=== PATIENT | female | born 1940 | race Caucasian/White ===

== ENCOUNTER 2017-01-29 22:59 | Inpatient (IN) | payer MEDICARE, BC ==
[2017-01-29] MEDS ORDERED: Ondansetron 4 MG Tab.DIS PO ONE (23:26)
[2017-01-29] MEDS ORDERED: Sodium Chloride 0.9% 500 ML IV SCH (23:30)
[2017-01-29] MEDS ORDERED: Ondansetron 4 MG Tab.DIS ONE (23:30)
[2017-01-29] MEDS ORDERED: Prochlorperazine 10 MG Tab PO PRN (23:52)
[2017-01-30] MEDS ORDERED: Promethazine 25 MG/ML SDV ONE (00:05)
[2017-01-30] MEDS ORDERED: Ketorolac 30 MG/ML SDV ONE (00:05)
[2017-01-30] MEDS: Ketorolac 30 MG/ML SDV IVPUSH PRN ×2 (00:17→07:35)
[2017-01-30] MEDS: Promethazine 25 MG in Sodium Chloride 0.9% 50 ML IV PRN ×2 (00:20→05:50)
--- NOTE | 2017-01-30 00:21 | EDM.PDOC ---
ED HPI GENERAL MEDICAL PROBLEM - General Chief Complaint: General Stated Complaint: passing out / weakness Time Seen by Provider: 01/29/17 23:34 Source of Information: Reports: Patient History Limitations: Reports: No limitations - History of Present Illness INITIAL COMMENTS - FREE TEXT/NARRATIVE: This is a 76yo F here for recent episode of syncope. Patient had been throwing up since 8pm today and felt very ill when she called her neighbor. When her neighbor arrived she had an episode of syncope. EMS was called and patient was brought in. Patient states she feels chills but denies fever. Patient states she hurts all over but that this is nothing new. Patient continues to vomit during her evaluation. Onset: gradual Duration: Hour(s):, Intermittent Location: Reports: generalized Severity: moderate Improves with: Reports: None Worsens with: Reports: None Context: Reports: Sick contact (family GI sickness a week ago) Associated Symptoms: Reports: diaphoresis, fever/chills, nausea/vomiting, syncope Generalized Pain Score (Numeric/FACES): 6 - Related Data Allergies Allergy/AdvReac Type Severity Reaction Status Date / Time Penicillins Allergy Cannot Verified 01/29/17 23:14 Remember Tetanus Vaccines and Toxoid Allergy Anaphylactic Verified 01/29/17 23:14 Shock narcotic Allergy Cannot Uncoded 08/12/13 13:30 Remember Home Meds: Home Meds Cholecalciferol (Vitamin D3) [Vitamin D] 400 unit PO DAILY 08/12/13 [History] Naproxen Sodium [Aleve] 220 mg PO BID PRN 08/12/13 [History] [place]-3/DHA/Epa/Fish Oil [Fish Oil 1,000 mg Softgel] 1 each PO DAILY 08/12/13 [ History] Valsartan [Diovan] 40 mg PO BID 08/12/13 [History] metFORMIN [metFORMIN XR] 500 mg PO TID 08/12/13 [History] atorvaSTATin [Lipitor] 20 mg PO BEDTIME 01/29/17 [History] Social & Family History - Tobacco Use Smoking Status *Q: Current Every Day Smoker Years of Tobacco use: 60 Packs/Tins Daily: 1 Used Tobacco, but Quit: No Second Hand Smoke Exposure: Yes - Caffeine Use Caffeine Use: Reports: Coffee - Alcohol Use Days Per Week of Alcohol Use: 1 Number of Drinks Per Day: 2 Total Drinks Per Week: 2 - Recreational Drug Use Recreational Drug Use: No ED ROS GENERAL - Review of Systems Review Of Systems: See Below Constitutional: Reports: chills, diaphoresis HEENT: Reports: No symptoms Respiratory: Reports: no symptoms Cardiovascular: Reports: No symptoms Endocrine: Reports: no symptoms GI/Abdominal: Reports: Nausea, Vomiting Musculoskeletal: Reports: back pain, leg pain, joint pain, muscle pain Skin: Reports: no symptoms Neurological: Reports: no symptoms Psychiatric: Reports: No symptoms Hematologic/Lymphatic: Reports: no symptoms Immunologic: Reports: environmental allergy ED EXAM, GENERAL - Physical Exam Exam: See Below Exam Limited By: No limitations General Appearance: alert, WD/WN, moderate distress Eye Exam: bilateral eye: EOMI, PERRL Ears: normal external exam Ear Exam: bilateral ear: auricle normal, canal normal, TM normal Nose: normal inspection Throat/Mouth: Normal inspection Head: atraumatic, normocephalic Neck: normal inspection, supple, non-tender Respiratory/Chest: no respiratory distress, lungs clear Cardiovascular: normal peripheral pulses, regular rate, rhythm, other (b/l leg edema +2) Peripheral Pulses: 2+: dorsalis pedis (L), dorsalis pedis (R) GI/Abdominal: normal bowel sounds, distended. No: rebound, tender, abnormal bowel sounds: Extremities: normal capillary refill, pedal edema Neurological: alert, oriented Psychiatric: normal affect, normal mood Skin Exam: Warm, Dry, Intact Course - Vital Signs Last Recorded V/S: Last Vital Signs Temp 36.8 C 01/29/17 23:45 Pulse 97 01/29/17 23:45 Resp 24 H 01/29/17 23:45 BP 203/72 H 01/29/17 23:45 Pulse Ox 96 01/29/17 23:45 - Orders/Labs/Meds Orders: Active Orders 24 hr Category Date Time Status Patient Status [ADT] Routine ADT 01/30/17 00:15 Ordered EKG Documentation Completion [RC] ASDIRECTED Care 01/29/17 23:20 Active Oxygen Therapy [RC] PRN Care 01/30/17 00:15 Ordered Vital Signs [RC] Q4H Care 01/30/17 00:15 Ordered UA W/MICROSCOPIC [URIN] Stat Lab 01/29/17 23:23 Uncollected Ketorolac [Toradol] Med 01/29/17 23:58 Active 30 mg IVPUSH Q6H PRN Nicotine [Habitrol] Med 01/30/17 08:00 Active 21 mg TRDERM DAILY Ondansetron [Zofran] Med 01/29/17 23:52 Active 4 mg IVPUSH Q4H PRN Prochlorperazine [Compazine] Med 01/29/17 23:52 Active 10 mg PO Q6H PRN Promethazine [Phenergan] 25 mg Med 01/30/17 00:01 Active Sodium Chloride 0.9% [Normal Saline] 50 ml IV Q6H Sodium Chloride 0.9% [Normal Saline] 500 ml Med 01/29/17 23:30 Active IV ASDIRECTED Medication Orders Sodium Chloride (Normal Saline) 500 mls @ 250 mls/hr IV ASDIRECTED [facility] Promethazine HCl 25 mg/ Sodium (Chloride) 51 mls @ 200 mls/hr IV Q6H PRN PRN Reason: Nausea/Vomiting Ketorolac Tromethamine (Toradol) 30 mg IVPUSH Q6H PRN PRN Reason: Pain Stop: 02/03/17 23:59 Nicotine (Habitrol) 21 mg TRDERM DAILY [facility] Ondansetron HCl (Zofran) 4 mg IVPUSH Q4H PRN PRN Reason: Nausea/Vomiting Prochlorperazine Maleate (Compazine) 10 mg PO Q6H PRN PRN Reason: Nausea/Vomiting Labs: Laboratory Tests 01/29/17 01/29/17 01/29/17 Range/Units 23:40 23:40 23:40 WBC 14.0 H D (4.0-11.0) K/uL RBC 4.93 (3.80-5.80) M/uL Hgb 14.7 (11.5-16.5) g/dL Hct 44.4 (37.0-47.0) % MCV 90 (76-96) fL MCH 29.8 (27.0-32.0) pg MCHC 33.1 (31.0-35.0) g/dL RDW 13.7 (11.0-16.0) % Plt Count 231 (150-500) K/uL MPV 9.8 (6.0-10.0) fL Neut % (Auto) 92.2 H (45.0-70.0) % Lymph % (Auto) 3.1 L (20.0-40.0) % [place] % (Auto) 3.5 (3.0-10.0) % Eos % (Auto) 1.1 (1.0-5.0) % Baso % (Auto) 0.1 (0.0-0.5) % Neut # 12.89 H (2.00-7.50) K/uL Lymph # 0.43 L (1.50-4.00) K/uL [place] # 0.49 (0.20-0.80) K/uL Eos # 0.16 (0.04-0.40) K/uL Baso # 0.02 (0.02-0.10) K/uL Sodium 139 (136-145) mmol/L Potassium 4.5 (3.5-5.1) mmol/L Chloride 102 (98-107) mmol/L Carbon Dioxide 26.1 (21.0-32.0) mmol/L Anion Gap 15.4 H (5.0-15.0) mmol/L BUN 29 H D (8-26) mg/dL Creatinine 1.05 H (0.55-1.02) mg/dL Est Cr Clr Drug Dosing 33.25 mL/min Estimated GFR (MDRD) 51 L (>60) MLS/MIN BUN/Creatinine Ratio 27.6 H (6-25) Glucose 194 H D (74-100) mg/dL Hemoglobin A1c (4.5-6.2) % Calcium 8.8 (8.5-10.1) mg/dL Total Bilirubin 0.7 D (0.0-1.0) mg/dL AST 14 L (15-37) U/L ALT 19 (12-78) U/L Alkaline Phosphatase 87 (46-116) U/L Troponin I < 0.017 (0.000-0.060) ng/mL B-Natriuretic Peptide 222 (0-450) pg/mL Total Protein 7.4 (6.4-8.2) g/dL Albumin 3.7 (3.4-5.0) g/dL Globulin 3.7 (2.2-4.2) g/dL Albumin/Globulin Ratio 1.0 (0.8-2.0) TSH, Ultra Sensitive 3.157 (0.358-3.740) uIU/mL 01/29/17 Range/Units 23:40 WBC (4.0-11.0) K/uL RBC (3.80-5.80) M/uL Hgb (11.5-16.5) g/dL Hct (37.0-47.0) % MCV (76-96) fL MCH (27.0-32.0) pg MCHC (31.0-35.0) g/dL RDW (11.0-16.0) % Plt Count (150-500) K/uL MPV (6.0-10.0) fL Neut % (Auto) (45.0-70.0) % Lymph % (Auto) (20.0-40.0) % [place] % (Auto) (3.0-10.0) % Eos % (Auto) (1.0-5.0) % Baso % (Auto) (0.0-0.5) % Neut # (2.00-7.50) K/uL Lymph # (1.50-4.00) K/uL [place] # (0.20-0.80) K/uL Eos # (0.04-0.40) K/uL Baso # (0.02-0.10) K/uL Sodium (136-145) mmol/L Potassium (3.5-5.1) mmol/L Chloride (98-107) mmol/L Carbon Dioxide (21.0-32.0) mmol/L Anion Gap (5.0-15.0) mmol/L BUN (8-26) mg/dL Creatinine (0.55-1.02) mg/dL Est Cr Clr Drug Dosing mL/min Estimated GFR (MDRD) (>60) MLS/MIN BUN/Creatinine Ratio (6-25) Glucose (74-100) mg/dL Hemoglobin A1c 6.5 H (4.5-6.2) % Calcium (8.5-10.1) mg/dL Total Bilirubin (0.0-1.0) mg/dL AST (15-37) U/L ALT (12-78) U/L Alkaline Phosphatase (46-116) U/L Troponin I (0.000-0.060) ng/mL B-Natriuretic Peptide (0-450) pg/mL Total Protein (6.4-8.2) g/dL Albumin (3.4-5.0) g/dL Globulin (2.2-4.2) g/dL Albumin/Globulin Ratio (0.8-2.0) TSH, Ultra Sensitive (0.358-3.740) uIU/mL Meds: Medications Generic Name Dose Route Start Last Admin Trade Name Freq PRN Reason Stop Dose Admin Sodium Chloride 500 mls @ 250 mls/hr 01/29/17 23:30 Normal Saline IV ASDIRECTED [facility] Promethazine HCl 25 mg/ Sodium 51 mls @ 200 mls/hr 01/30/17 00:01 Chloride IV Q6H PRN Nausea/Vomiting Ketorolac Tromethamine 30 mg 01/29/17 23:58 Toradol IVPUSH 02/03/17 23:59 Q6H PRN Pain Nicotine 21 mg 01/30/17 08:00 Habitrol TRDERM DAILY [facility] Ondansetron HCl 4 mg 01/29/17 23:52 Zofran IVPUSH Q4H PRN Nausea/Vomiting Prochlorperazine Maleate 10 mg 01/29/17 23:52 Compazine PO Q6H PRN Nausea/Vomiting Discontinued Medications Generic Name Dose Route Start Last Admin Trade Name Freq PRN Reason Stop Dose Admin Ketorolac Tromethamine Confirm 01/30/17 00:05 Toradol Administered 01/30/17 00:06 Dose 30 mg .ROUTE .STK-MED ONE Ondansetron HCl 8 mg 01/29/17 23:26 Zofran Odt PO 01/29/17 23:27 ONETIME ONE Ondansetron HCl Confirm 01/29/17 23:30 01/30/17 00:03 Zofran Odt Administered 01/29/17 23:31 Not Given Dose 8 mg .ROUTE .STK-MED ONE Promethazine HCl Confirm 01/30/17 00:05 Phenergan Administered 01/30/17 00:06 Dose 25 mg .ROUTE .STK-MED ONE - Re-Assessments/Exams Free Text/Narrative Re-Assessment/Exam: Given 8mg zofran orally but continued to vomit. IV to be placed for nausea medications. Departure - Departure Time of Disposition: 00:24 Disposition: Admitted As Inpatient 67 Condition: good Clinical Impression: Dehydration symptoms, Renal dysfunction Syncope Qualifiers: Syncope type: unspecified Qualified Code(s): R55 - Syncope and collapse Leukocytosis, unspecified Qualifiers: Leukocytosis type: unspecified Qualified Code(s): D72.829 - Elevated white blood cell count, unspecified Forms: ED Department Discharge - Problem List Review Problem List Initiated/Reviewed/Updated: Yes - My Orders Last 24 Hours: My Active Orders 01/29/17 23:20 EKG Documentation Completion [RC] ASDIRECTED 01/29/17 23:23 UA W/MICROSCOPIC [URIN] Stat 01/29/17 23:30 Sodium Chloride 0.9% [Normal Saline] 500 ml IV ASDIRECTED 01/29/17 23:52 Ondansetron [Zofran] 4 mg IVPUSH Q4H PRN Prochlorperazine [Compazine] 10 mg PO Q6H PRN 01/29/17 23:58 Ketorolac [Toradol] 30 mg IVPUSH Q6H PRN 01/30/17 00:01 Promethazine [Phenergan] 25 mg Sodium Chloride 0.9% [Normal Saline] 50 ml IV Q6H 01/30/17 00:15 Patient Status [ADT] Routine Oxygen Therapy [RC] PRN Vital Signs [RC] Q4H 01/30/17 08:00 Nicotine [Habitrol] 21 mg TRDERM DAILY - Assessment/Plan Last 24 Hours: My Active Orders 01/29/17 23:20 EKG Documentation Completion [RC] ASDIRECTED 01/29/17 23:23 UA W/MICROSCOPIC [URIN] Stat 01/29/17 23:30 Sodium Chloride 0.9% [Normal Saline] 500 ml IV ASDIRECTED 01/29/17 23:52 Ondansetron [Zofran] 4 mg IVPUSH Q4H PRN Prochlorperazine [Compazine] 10 mg PO Q6H PRN 01/29/17 23:58 Ketorolac [Toradol] 30 mg IVPUSH Q6H PRN 01/30/17 00:01 Promethazine [Phenergan] 25 mg Sodium Chloride 0.9% [Normal Saline] 50 ml IV Q6H 01/30/17 00:15 Patient Status [ADT] Routine Oxygen Therapy [RC] PRN Vital Signs [RC] Q4H 01/30/17 08:00 Nicotine [Habitrol] 21 mg TRDERM DAILY Plan: Patient to be admitted as follows 1. Syncope - likely vasovagal due to vomiting episodes. EKG done but does show minimal changes including 'cannot rule out Anterior infarct age undetermined'. Her last EKG was 2007 in records. We will repeat Troponin in AM. 2. Leukocytosis - IVF hydration and repeat CBC in am. Likely stress induced. 3. Dehydration/renal dysfunction - Continue IVF with maintenance fluids. F/u labs in AM.
[2017-01-30] MEDS: Sodium Chloride 0.9% 1,000 ML IV SCH ×2 (02:35→05:51)
[2017-01-30] MEDS: Ondansetron 4 MG/2 ML SDV IVPUSH PRN ×2 (04:10→05:12)
[2017-01-30] MEDS ORDERED: Morphine 2 MG/ML Syringe IVPUSH PRN (08:10)
--- NOTE | 2017-01-30 10:37 | CR ---
DATE OF SERVICE: 01/30/17 CLINICAL DATA: pain SUPINE AND UPRIGHT ABDOMEN: Comparison is made to a prior exam dated 02/24/13. There is a moderate amount of gas and stool present throughout the colon. There are multiple gas-filled loops of small bowel within the abdomen and pelvis. A couple of these are mildly dilated. There are a few scattered air- fluid levels within the small bowel and colon on the upright film. Additional obstruction or ileus should be considered. No free air. I do not see any other significant findings. [id number] [facility]
[2017-01-30] MEDS: Nicotine 21 MG/24 Hr Patch TRDERM SCH (13:00)
[2017-01-30] MEDS: Insulin Aspart 100 Units/ML 3 ML Pen SUBCUT SCH (13:04)
[2017-01-30] MEDS ORDERED: Sodium Chloride 0.9% 1,000 ML IV SCH (13:45)
[2017-01-30] MEDS ORDERED: Acetaminophen 325 MG Tab ONE (14:09)
--- NOTE | 2017-01-30 17:43 | PN ---
DATE OF VISIT: 01/30/2017 SUBJECTIVE: A 76-year-old female was admitted last evening with nausea, vomiting, abdominal pain. The patient had mild leukocytosis on admission with no fevers, but did have chills. States the symptoms came on abruptly at 8 o'clock last night. She did have a bowel movement prior to this. She has had a laparotomy in the past for internal hernia, but no other abdominal surgeries. She has had grandchildren that she is taking care of who were sick with similar symptoms, but that was 10 days ago. She currently is complaining of some abdominal pain, but her nausea and vomiting are resolved. She has not passed any stool or flatus. OBJECTIVE: GENERAL: A pleasant female, lying in bed, in mild distress. VITAL SIGNS: Blood pressure 145/68, pulse is 108, respirations 18, O2 sats 93. She is afebrile at 99. NECK: No adenopathy in the neck. LUNGS: Clear. CARDIAC: Exam reveals regular rate and rhythm. No gallop. No pedal edema. ABDOMEN: Reveals mildly decreased bowel sounds, mildly distended. She is diffusely tender to palpation, but no rebound or guarding. I cannot palpate any masses. NEUROLOGIC: Nonfocal. LABORATORY DATA: White count rechecked this morning is 11.1, hemoglobin 13.2, platelet count 208. Electrolytes are normal with an anion gap of 15.8, BUN of 35, and creatinine of 1.13. LFTs last night were normal. Troponin is negative. Lactic acid is 1.74 , which is minimally elevated. Urinalysis shows a very high specific gravity greater than 1.03. Urine protein is 100. No white cells or red cells. Abdominal flat and upright, some stool within the colon, minimal small bowel dilatation with a few air-fluid levels. ADDENDUM: Did come back and see her later this afternoon and states she is passing flatus currently. Her abdominal pain is much improved. No further nausea or vomiting. IMPRESSION: 1. Gastroenteritis. 2. Hypertension. 3. Hyperlipidemia. PLAN: With the patient passing flatus currently and her nausea and vomiting resolved and she is taking p.o. liquids, I think this is most likely gastroenteritis. Encouraged p.o. intake and ambulation. Will advance her diet as tolerated. Anticipate that she should be able to go home tomorrow if her symptoms continue to improve. Continue her current antihypertensives. LL/CHAPARRO /[id number] SONIDO
[2017-01-30] MEDS: Ibuprofen 400 MG Tab PO ONE (19:28)
[2017-01-30] MEDS ORDERED: Aluminum Hydroxide/Magnesium Hydroxide/Simethicone Susp 30 ML Cup PO PRN (19:44)
[2017-01-30] MEDS ORDERED: Bisacodyl 10 MG Supp RECTAL ONE (19:44)
[2017-01-30] MEDS ORDERED: Aluminum Hydroxide/Magnesium Hydroxide/Simethicone Susp 30 ML Cup ONE (19:50)
[2017-01-30] MEDS: Valsartan 40 MG Tab PO SCH (20:13)
[2017-01-31] MEDS: Insulin Aspart 100 Units/ML 3 ML Pen SUBCUT SCH (03:01)
[2017-01-31] MEDS ORDERED: Ibuprofen 400 MG Tab ONE (05:17)
[2017-01-31] MEDS: Ibuprofen 400 MG Tab PO ONE (05:28)
[2017-01-31] MEDS: Nicotine 21 MG/24 Hr Patch TRDERM SCH (07:26)
[2017-01-31 07:44] VITALS: BP 159/64
[2017-01-31] MEDS: Valsartan 40 MG Tab PO SCH (07:44)
--- NOTE | 2017-01-31 13:09 | DISCH ---
DISCHARGE DIAGNOSES: 1. Viral gastroenteritis. 2. Dehydration. 3. Syncopal episode secondary to #1. 4. Hypertension. 5. Hyperlipidemia. 6. Leukocytosis. PROCEDURES THIS ADMISSION: Abdominal flat and upright x-ray. HOSPITAL COURSE: The patient was admitted after nausea, vomiting, and a syncopal episode that occurred at home unwitnessed. The patient states she was feeling well up until the event. She was around people with similar symptoms approximately 10 days earlier. The patient was noted to be dehydrated on admission and was given IV fluids and antiemetics. White count was mildly elevated at 14,000. Urinalysis was clear. The patient did undergo an abdominal flat and upright which did show some stool within the colon and a few air fluid levels and lactic acid was minimally elevated at 1.74. Monitoring her progress, the patient just starts passing flatus, was doing well, and was taking clear liquids within 24 hours. The patient's white count did decrease to 11 following the morning after admission, and the patient was up ambulating and drinking normally without difficulty. The patient's lab work from this morning is pending, but I anticipate that this will normalize and anticipate that she will be discharge to home with followup with her primary care physician as previously scheduled. MEDICATIONS UPON DISCHARGE: 1. Vitamin D 400 units daily. 2. Aleve 220 mg b.i.d. 3. Fish oil 1 capsule daily. 4. Diovan 40 mg b.i.d. 5. Lipitor 20 mg daily. 6. Metformin 500 mg t.i.d. The patient is on a regular diet, up ambulating, competent to handle her own affairs. Will follow up with Dr. Perez as previously scheduled. BRAIN/CHAPARRO /[id number]
== END 2017-01-31 11:00 | disposition home or self-care (01) | DRG 392 ==
LOC: LB.ED 22:59 → LB.MS 01-30 00:15 → UNDOADMIN 01-30 00:30
PROVIDERS: ADMIT Family Medicine; ATTEND Internal Medicine
DX: A08.4 Viral intestinal infection, unspecified (principal); R55 Syncope and collapse; E86.0 Dehydration; F17.210 Nicotine dependence, cigarettes, uncomplicated; I10 Essential (primary) hypertension; D72.829 Elevated white blood cell count, unspecified; E78.5 Hyperlipidemia, unspecified; Z88.0 Allergy status to penicillin; Z88.7 Allergy status to serum and vaccine; Z88.8 Allergy status to other drugs, medicaments and biological substances; N28.9 Disorder of kidney and ureter, unspecified
CPT/HCPCS: 80053; 84443; 85025; 87804 ×2; 93005; 99285; A9270; 36415; 74020; 80048; 81001; 82962; 83036; 83605; 83880; 84484; A0425; A0429; J1885; J2405; J2550; J7040; J7050

== ENCOUNTER 2022-11-19 11:21 | Observation (INO) | payer MEDICARE ==
[2022-11-19] MEDS ORDERED: Sodium Chloride 0.9% 10 ML Syringe FLUSH PRN (11:49)
[2022-11-19] MEDS ORDERED: Ondansetron 4 MG/2 ML SDV IVPUSH ONE (12:01)
[2022-11-19] MEDS ORDERED: Sodium Chloride 0.9% 1,000 ML IV ONE (12:03)
[2022-11-19] MEDS ORDERED: Ondansetron 4 MG/2 ML SDV ONE (12:15)
[2022-11-19] MEDS ORDERED: Sodium Chloride 0.9% 50 ML SDV FLUSH ONE (12:18)
[2022-11-19] MEDS ORDERED: Ketorolac 30 MG/ML SDV ONE (12:25)
[2022-11-19] MEDS ORDERED: Labetalol 100 MG/20 ML MDV IVPUSH ONE (12:25)
[2022-11-19] MEDS ORDERED: Ketorolac 30 MG/ML SDV IVPUSH ONE (12:26)
[2022-11-19] MEDS ORDERED: Diatrizoate Meglumine/Diatrizoate Sodium 37% 30 ML Bottle PO SCH (12:30)
[2022-11-19] MEDS ORDERED: Iopamidol 612 MG/ML 100 ML Bottle IV SCH (12:30)
[2022-11-19] MEDS ORDERED: Labetalol 100 MG/20 ML MDV ONE (12:38)
[2022-11-19] MEDS ORDERED: Hydrochlorothiazide 12.5 MG Cap PO PRN (17:15)
[2022-11-19] MEDS ORDERED: Pantoprazole 40 MG in Sodium Chloride 0.9% 100 ML IV ONE (17:17)
[2022-11-19] MEDS ORDERED: Polyethylene Glycol 3350 Powder 17 GM Packet PO ONE (17:19)
[2022-11-19] MEDS ORDERED: Bisacodyl 5 MG Tab PO ONE (17:21)
[2022-11-19] MEDS ORDERED: Bisacodyl 5 MG Tab ONE (17:28)
[2022-11-19] MEDS ORDERED: Pantoprazole 40 MG Vial IVPUSH ONE (17:30)
[2022-11-19] MEDS: Nicotine 21 MG/24 Hr Patch TRDERM SCH (17:51)
[2022-11-19] MEDS: Acetaminophen 500 MG Tab PO PRN (20:25)
[2022-11-19] MEDS: atorvaSTATin 20 MG Tab PO SCH (20:26)
[2022-11-20] MEDS: Acetaminophen 500 MG Tab PO PRN ×2 (01:04→19:44)
[2022-11-20] MEDS: Pantoprazole 40 MG Tab.CR PO SCH (07:00)
[2022-11-20] MEDS ORDERED: Polyethylene Glycol 3350 Powder 17 GM Packet PO SCH (08:00)
[2022-11-20] MEDS: Metoprolol Succinate 25 MG Tab.ER PO SCH (08:16)
[2022-11-20] MEDS: Losartan 50 MG Tab PO SCH (08:16)
[2022-11-20] MEDS: Nicotine 21 MG/24 Hr Patch TRDERM SCH (08:16)
[2022-11-20] MEDS: VOLTAREN 1% TOP PRN ×2 (12:54→18:47)
[2022-11-20] MEDS ORDERED: Lactulose Soln 10 GM/15 ML 15 ML UD Cup PO SCH (13:00)
[2022-11-20] MEDS: Lactulose Soln 10 GM/15 ML 15 ML UD Cup PO SCH (18:00)
[2022-11-20] MEDS: Docusate Sodium 100 MG Cap PO SCH (19:43)
[2022-11-20] MEDS: atorvaSTATin 20 MG Tab PO SCH (19:44)
[2022-11-20] MEDS ORDERED: atorvaSTATin 20 MG Tab PO SCH (20:00)
[2022-11-21] MEDS: VOLTAREN 1% TOP PRN ×2 (00:32→07:34)
[2022-11-21] MEDS: Acetaminophen 500 MG Tab PO PRN ×2 (03:42→12:29)
[2022-11-21] MEDS: Metoprolol Succinate 25 MG Tab.ER PO SCH (07:27)
[2022-11-21] MEDS: Pantoprazole 40 MG Tab.CR PO SCH (07:27)
[2022-11-21] MEDS: Losartan 50 MG Tab PO SCH (07:27)
[2022-11-21] MEDS: Docusate Sodium 100 MG Cap PO SCH (07:27)
[2022-11-21] MEDS: Nicotine 21 MG/24 Hr Patch TRDERM SCH (07:27)
[2022-11-21] MEDS: Lactulose Soln 10 GM/15 ML 15 ML UD Cup PO SCH (07:34)
[2022-11-21 12:33] VITALS: BP 148/85; PULSE 59
== END 2022-11-21 15:25 | disposition home or self-care (01) ==
LOC: LB.ED 11:21 → INTOOBSV 15:09 → LB.MS 15:09
PROVIDERS: ADMIT Emergency Medicine; ATTEND Emergency Medicine
DX: K59.00 Constipation, unspecified (principal); R10.10 Upper abdominal pain, unspecified; E86.0 Dehydration; I12.9 Hypertensive chronic kidney disease with stage 1 through stage 4 chronic kidney disease, or unspecified chronic kidney disease; E11.22 Type 2 diabetes mellitus with diabetic chronic kidney disease; N18.4 Chronic kidney disease, stage 4 (severe); M25.552 Pain in left hip; E78.00 Pure hypercholesterolemia, unspecified; E66.9 Obesity, unspecified; K21.9 Gastro-esophageal reflux disease without esophagitis; F17.210 Nicotine dependence, cigarettes, uncomplicated; M51.34 Other intervertebral disc degeneration, thoracic region; M51.36 Other intervertebral disc degeneration, lumbar region; M19.90 Unspecified osteoarthritis, unspecified site; Z20.822 Contact with and (suspected) exposure to COVID-19; Z79.899 Other long term (current) drug therapy; Z88.0 Allergy status to penicillin; Z96.659 Presence of unspecified artificial knee joint; Z98.890 Other specified postprocedural states; Z88.7 Allergy status to serum and vaccine; Z88.5 Allergy status to narcotic agent
CPT/HCPCS: 36415; 74176; 80053; 81001; 83605; 83690; 85025; 86140; 87086; 96361; 96374; 96375; 99219; 99232; 99238; 99285; A9270; C9113; J1885; J2405; J3490; J7030; Q9963; U0002

== ENCOUNTER 2023-04-04 13:55 | Inpatient (IN) | payer MEDICARE ==
[2023-04-04] MEDS: Aspirin 81 MG Tab.EC PO SCH (21:39)
[2023-04-04] MEDS: hydrALAZINE 25 MG Tab PO SCH (21:39)
[2023-04-04] MEDS: Sertraline 25 MG Tab PO SCH (21:39)
[2023-04-04] MEDS: atorvaSTATin 20 MG Tab PO SCH (21:40)
[2023-04-04] MEDS: Polyethylene Glycol 3350 Powder 17 GM Packet PO SCH (21:40)
[2023-04-04] MEDS: Nystatin Crm 30 GM Tube TOP SCH (21:40)
[2023-04-04] MEDS ORDERED: Tuberculin, PPD 5 Units/0.1 ML 1 ML MDV IDERM ONE (21:45)
[2023-04-04] MEDS: Acetaminophen 325 MG Tab PO PRN (22:08)
[2023-04-05] MEDS: hydrALAZINE 25 MG Tab PO SCH ×3 (02:51→22:04)
[2023-04-05] MEDS ORDERED: Ipratropium 0.02% 0.5 MG/2.5 ML Neb Soln INH SCH (06:00)
[2023-04-05] MEDS ORDERED: Pantoprazole 40 MG Delayed-Release Granules 1 Packet PO SCH (07:00)
[2023-04-05] MEDS ORDERED: SODIUM BICARBONATE 650 MG PO SCH (08:00)
[2023-04-05] MEDS ORDERED: hydrALAZINE 25 MG Tab ONE (08:32)
[2023-04-05] MEDS: Lactulose Soln 10 GM/15 ML 15 ML UD Cup PO SCH (08:34)
[2023-04-05] MEDS: Aspirin 81 MG Tab.EC PO SCH (08:35)
[2023-04-05] MEDS: Nicotine 14 MG/24 Hr Patch TOP SCH (08:35)
[2023-04-05] MEDS: Furosemide 20 MG Tab PO SCH (08:35)
[2023-04-05] MEDS: Polyethylene Glycol 3350 Powder 17 GM Packet PO SCH ×2 (08:35→22:03)
[2023-04-05] MEDS: Nystatin Crm 30 GM Tube TOP SCH (08:38)
[2023-04-05] MEDS: Acetaminophen 325 MG Tab PO PRN (08:41)
[2023-04-05] MEDS: Metoprolol Succinate 25 MG Tab.ER PO SCH (08:49)
[2023-04-05] MEDS: NIFEdipine 30 MG Tab.ER PO SCH (08:49)
[2023-04-05] MEDS: Tiotropium Inhaler 18 MCG Inhalation Powder Cap Kit of 5 INH SCH (11:46)
[2023-04-05] MEDS ORDERED: Pantoprazole 40 MG Tab.CR ONE (13:00)
[2023-04-05] MEDS ORDERED: Calcium Carbonate 500 MG Tab.Chew ONE (13:00)
[2023-04-05] MEDS ORDERED: Losartan 50 MG Tab ONE (13:00)
[2023-04-05] MEDS: Calcium Carbonate 500 MG Tab.Chew PO SCH ×3 (13:03→22:04)
[2023-04-05] MEDS: Losartan 50 MG Tab PO SCH (13:03)
[2023-04-05] MEDS: Pantoprazole 40 MG Tab.CR PO SCH (13:03)
[2023-04-05] MEDS: oxyCODONE 5 MG Tab PO PRN (13:13)
[2023-04-05] MEDS: atorvaSTATin 20 MG Tab PO SCH (22:05)
[2023-04-05] MEDS: Sertraline 25 MG Tab PO SCH (22:05)
[2023-04-06] MEDS: Aspirin 81 MG Tab.EC PO SCH ×3 (09:47→19:12)
[2023-04-06] MEDS: Calcium Carbonate 500 MG Tab.Chew PO SCH ×2 (09:47→19:12)
[2023-04-06] MEDS: Furosemide 20 MG Tab PO SCH (09:48)
[2023-04-06] MEDS: Metoprolol Succinate 25 MG Tab.ER PO SCH (09:48)
[2023-04-06] MEDS: hydrALAZINE 25 MG Tab PO SCH ×2 (09:49→19:07)
[2023-04-06] MEDS: Losartan 50 MG Tab PO SCH (09:49)
[2023-04-06] MEDS: Pantoprazole 40 MG Tab.CR PO SCH (09:49)
[2023-04-06] MEDS: Polyethylene Glycol 3350 Powder 17 GM Packet PO SCH ×2 (09:50→19:07)
[2023-04-06] MEDS: NIFEdipine 30 MG Tab.ER PO SCH (09:50)
[2023-04-06] MEDS: Nystatin Crm 30 GM Tube TOP SCH ×3 (09:51→19:16)
[2023-04-06] MEDS: Lactulose Soln 10 GM/15 ML 15 ML UD Cup PO SCH (09:51)
[2023-04-06] MEDS: Nicotine 14 MG/24 Hr Patch TOP SCH (09:51)
[2023-04-06] MEDS: Tiotropium Inhaler 18 MCG Inhalation Powder Cap Kit of 5 INH SCH (09:52)
[2023-04-06] MEDS: Acetaminophen 325 MG Tab PO PRN (14:27)
[2023-04-06] MEDS: atorvaSTATin 20 MG Tab PO SCH (19:10)
[2023-04-06] MEDS: oxyCODONE 5 MG Tab PO PRN (19:10)
[2023-04-06] MEDS: Sertraline 25 MG Tab PO SCH (19:10)
[2023-04-07] MEDS: Polyethylene Glycol 3350 Powder 17 GM Packet PO SCH ×2 (07:17→19:44)
[2023-04-07] MEDS: Lactulose Soln 10 GM/15 ML 15 ML UD Cup PO SCH (07:17)
[2023-04-07] MEDS: Metoprolol Succinate 25 MG Tab.ER PO SCH (07:19)
[2023-04-07] MEDS: Aspirin 81 MG Tab.EC PO SCH ×2 (07:19→19:42)
[2023-04-07] MEDS: Nicotine 14 MG/24 Hr Patch TOP SCH (07:19)
[2023-04-07] MEDS: Furosemide 20 MG Tab PO SCH (07:20)
[2023-04-07] MEDS: hydrALAZINE 25 MG Tab PO SCH ×2 (07:20→19:42)
[2023-04-07] MEDS: NIFEdipine 30 MG Tab.ER PO SCH (07:20)
[2023-04-07] MEDS: Losartan 50 MG Tab PO SCH (07:20)
[2023-04-07] MEDS: oxyCODONE 5 MG Tab PO PRN ×2 (07:20→13:35)
[2023-04-07] MEDS: Pantoprazole 40 MG Tab.CR PO SCH (07:20)
[2023-04-07] MEDS: Calcium Carbonate 500 MG Tab.Chew PO SCH ×2 (07:20→19:42)
[2023-04-07] MEDS: Nystatin Crm 30 GM Tube TOP SCH ×2 (07:21→19:44)
[2023-04-07] MEDS: Tiotropium Inhaler 18 MCG Inhalation Powder Cap Kit of 5 INH SCH (07:21)
[2023-04-07 08:23] LABS: ANION GAP 14.2 mmol/L (5.0-15.0); BLOOD UREA NITROGEN,BUN 39 mg/dL (8-26); BUN/CREATININE RATIO 17.1 (6-25); CALCIUM 8.4 mg/dL (8.5-10.1); CARBON DIOXIDE,CO2 25.6 mmol/L (21.0-32.0); CHLORIDE,CL 97 mmol/L (98-107); CREATININE 2.28 mg/dL (0.55-1.02); ESTIMATED GFR 21 mL/min (>60); GLUCOSE RANDOM 91 mg/dL (74-100); POTASSIUM,K 4.8 mmol/L (3.5-5.1); SODIUM,NA 132 mmol/L (136-145)
[2023-04-07 08:25] LABS: BASOPHILS ABSOLUTE AUTO 0.03 K/uL (0.02-0.10); BASOPHILS PERCENT AUTO 0.4 % (0.0-0.5); EOSINOPHILS ABSOLUTE AUTO 0.22 K/uL (0.04-0.40); EOSINOPHILS PERCENT AUTO 2.7 % (1.0-5.0); HEMATOCRIT 30.7 % (37.0-47.0); HEMOGLOBIN 9.9 g/dL (11.5-16.5); LYMPHOCYTES ABSOLUTE AUTO 1.55 K/uL (1.50-4.00); MEAN CORPUSCULAR HEMOGLOBIN 31.6 pg (27.0-32.0); MEAN CORPUSCULAR HGB CONC 32.2 g/dL (31.0-35.0); MEAN CORPUSCULAR VOLUME 98 fL (76-96); MEAN PLATELET VOLUME 10.4 fL (6.0-10.0); MONOCYTES ABSOLUTE AUTO 1.06 K/uL (0.20-0.80); NEUTROPHILS ABSOLUTE AUTO 5.29 K/uL (2.00-7.50); NEUTROPHILS PERCENT AUTO 64.9 % (45.0-70.0); PLATELET COUNT,PLT 403 K/uL (150-500); RED BLOOD CELL COUNT 3.13 M/uL (3.80-5.80); RED CELL DISTRIBUTION WIDTH 14.2 % (11.0-16.0); WHITE BLOOD CELL COUNT,WBC 8.2 K/uL (4.0-11.0)
[2023-04-07] MEDS ORDERED: Trolamine Salicylate/Aloe Vera 10% Crm 85 GM Tube TOP PRN (13:44)
[2023-04-07] MEDS: atorvaSTATin 20 MG Tab PO SCH (19:42)
[2023-04-07] MEDS: Sertraline 25 MG Tab PO SCH (19:42)
[2023-04-07] MEDS: Sertraline 50 MG Tab PO SCH (19:42)
[2023-04-07] MEDS: Cyclobenzaprine 5 MG Tab PO PRN (22:10)
[2023-04-08] MEDS: oxyCODONE 5 MG Tab PO PRN ×3 (01:21→19:59)
[2023-04-08] MEDS: Methocarbamol 500 MG Tab PO PRN (01:21)
[2023-04-08] MEDS: Polyethylene Glycol 3350 Powder 17 GM Packet PO SCH ×2 (08:53→20:03)
[2023-04-08] MEDS: Tiotropium Inhaler 18 MCG Inhalation Powder Cap Kit of 5 INH SCH (08:56)
[2023-04-08] MEDS: NIFEdipine 30 MG Tab.ER PO SCH (08:57)
[2023-04-08] MEDS: hydrALAZINE 25 MG Tab PO SCH ×2 (08:57→19:57)
[2023-04-08] MEDS: Aspirin 81 MG Tab.EC PO SCH ×2 (08:58→19:57)
[2023-04-08] MEDS: Pantoprazole 40 MG Tab.CR PO SCH (08:58)
[2023-04-08] MEDS: Calcium Carbonate 500 MG Tab.Chew PO SCH ×2 (08:58→19:56)
[2023-04-08] MEDS: Furosemide 20 MG Tab PO SCH (08:58)
[2023-04-08] MEDS: Losartan 50 MG Tab PO SCH (08:58)
[2023-04-08] MEDS: Metoprolol Succinate 25 MG Tab.ER PO SCH (08:58)
[2023-04-08] MEDS: Nicotine 14 MG/24 Hr Patch TOP SCH (08:59)
[2023-04-08] MEDS: Nystatin Crm 30 GM Tube TOP SCH ×3 (08:59→20:12)
[2023-04-08] MEDS ORDERED: Lactulose Soln 10 GM/15 ML 15 ML UD Cup ONE (09:00)
[2023-04-08] MEDS: Lactulose Soln 10 GM/15 ML 15 ML UD Cup PO SCH (09:02)
[2023-04-08] MEDS: Acetaminophen 325 MG Tab PO PRN (10:41)
[2023-04-08] MEDS: Cyclobenzaprine 5 MG Tab PO PRN (19:56)
[2023-04-08] MEDS: Sertraline 50 MG Tab PO SCH (19:56)
[2023-04-08] MEDS: atorvaSTATin 20 MG Tab PO SCH (19:57)
[2023-04-08] MEDS: Sertraline 25 MG Tab PO SCH (19:58)
[2023-04-09] MEDS: NIFEdipine 30 MG Tab.ER PO SCH (09:02)
[2023-04-09] MEDS: Metoprolol Succinate 25 MG Tab.ER PO SCH (09:03)
[2023-04-09] MEDS: hydrALAZINE 25 MG Tab PO SCH ×2 (09:03→20:54)
[2023-04-09] MEDS: Pantoprazole 40 MG Tab.CR PO SCH (09:04)
[2023-04-09] MEDS: Furosemide 20 MG Tab PO SCH (09:04)
[2023-04-09] MEDS: Aspirin 81 MG Tab.EC PO SCH ×2 (09:04→20:53)
[2023-04-09] MEDS: Calcium Carbonate 500 MG Tab.Chew PO SCH ×2 (09:04→20:53)
[2023-04-09] MEDS: Losartan 50 MG Tab PO SCH (09:05)
[2023-04-09] MEDS: Nicotine 14 MG/24 Hr Patch TOP SCH (09:08)
[2023-04-09] MEDS: Polyethylene Glycol 3350 Powder 17 GM Packet PO SCH ×3 (09:08→21:02)
[2023-04-09] MEDS: Lactulose Soln 10 GM/15 ML 15 ML UD Cup PO SCH (09:08)
[2023-04-09] MEDS: Nystatin Crm 30 GM Tube TOP SCH ×2 (09:10→20:56)
[2023-04-09] MEDS: Tiotropium Inhaler 18 MCG Inhalation Powder Cap Kit of 5 INH SCH (09:14)
[2023-04-09] MEDS: Acetaminophen 325 MG Tab PO PRN (09:16)
[2023-04-09] MEDS: Sertraline 50 MG Tab PO SCH (20:53)
[2023-04-09] MEDS: Cyclobenzaprine 5 MG Tab PO PRN (20:53)
[2023-04-09] MEDS: Sertraline 25 MG Tab PO SCH (20:53)
[2023-04-09] MEDS: atorvaSTATin 20 MG Tab PO SCH (20:53)
[2023-04-10] MEDS: Calcium Carbonate 500 MG Tab.Chew PO SCH ×2 (08:29→20:52)
[2023-04-10] MEDS: Furosemide 20 MG Tab PO SCH (08:29)
[2023-04-10] MEDS: Pantoprazole 40 MG Tab.CR PO SCH (08:29)
[2023-04-10] MEDS: Aspirin 81 MG Tab.EC PO SCH ×2 (08:29→20:52)
[2023-04-10] MEDS: Tiotropium Inhaler 18 MCG Inhalation Powder Cap Kit of 5 INH SCH (08:29)
[2023-04-10] MEDS: NIFEdipine 30 MG Tab.ER PO SCH (08:31)
[2023-04-10] MEDS: Losartan 50 MG Tab PO SCH (08:31)
[2023-04-10] MEDS: Nystatin Crm 30 GM Tube TOP SCH ×2 (08:31→21:01)
[2023-04-10] MEDS: Metoprolol Succinate 25 MG Tab.ER PO SCH (08:31)
[2023-04-10] MEDS: Polyethylene Glycol 3350 Powder 17 GM Packet PO SCH ×2 (08:31→21:01)
[2023-04-10] MEDS: Lactulose Soln 10 GM/15 ML 15 ML UD Cup PO SCH (08:32)
[2023-04-10] MEDS: hydrALAZINE 25 MG Tab PO SCH ×2 (08:34→20:53)
[2023-04-10] MEDS: Nicotine 14 MG/24 Hr Patch TOP SCH (08:34)
[2023-04-10] MEDS: oxyCODONE 5 MG Tab PO PRN ×2 (14:59→20:58)
[2023-04-10] MEDS: Acetaminophen 325 MG Tab PO PRN (15:01)
[2023-04-10] MEDS: Sertraline 25 MG Tab PO SCH (20:52)
[2023-04-10] MEDS: atorvaSTATin 20 MG Tab PO SCH (20:52)
[2023-04-10] MEDS: Sertraline 50 MG Tab PO SCH (20:52)
[2023-04-10] MEDS: Cyclobenzaprine 5 MG Tab PO PRN (20:59)
[2023-04-11] MEDS: Metoprolol Succinate 25 MG Tab.ER PO SCH (07:29)
[2023-04-11] MEDS: Aspirin 81 MG Tab.EC PO SCH ×2 (07:29→20:38)
[2023-04-11] MEDS: Calcium Carbonate 500 MG Tab.Chew PO SCH ×2 (07:30→20:37)
[2023-04-11] MEDS: Losartan 50 MG Tab PO SCH (07:31)
[2023-04-11] MEDS: Pantoprazole 40 MG Tab.CR PO SCH (07:31)
[2023-04-11] MEDS: Furosemide 20 MG Tab PO SCH (07:31)
[2023-04-11] MEDS: NIFEdipine 30 MG Tab.ER PO SCH (07:32)
[2023-04-11] MEDS: hydrALAZINE 25 MG Tab PO SCH ×2 (07:32→20:37)
[2023-04-11] MEDS: Polyethylene Glycol 3350 Powder 17 GM Packet PO SCH ×2 (07:33→20:41)
[2023-04-11] MEDS: Nicotine 14 MG/24 Hr Patch TOP SCH (07:33)
[2023-04-11] MEDS: Tiotropium Inhaler 18 MCG Inhalation Powder Cap Kit of 5 INH SCH (07:33)
[2023-04-11] MEDS: Nystatin Crm 30 GM Tube TOP SCH ×2 (07:33→20:38)
[2023-04-11] MEDS: Lactulose Soln 10 GM/15 ML 15 ML UD Cup PO SCH (07:33)
[2023-04-11] MEDS ORDERED: Losartan 50 MG Tab PO ONE ×2 (08:20→08:35)
[2023-04-11] MEDS: Albuterol 8 GM Inhaler INH PRN (11:38)
[2023-04-11] MEDS: Acetaminophen 325 MG Tab PO PRN (11:38)
[2023-04-11 12:19] LABS: BASOPHILS ABSOLUTE AUTO 0.04 K/uL (0.02-0.10); BASOPHILS PERCENT AUTO 0.6 % (0.0-0.5); EOSINOPHILS ABSOLUTE AUTO 0.25 K/uL (0.04-0.40); EOSINOPHILS PERCENT AUTO 3.5 % (1.0-5.0); HEMATOCRIT 28.3 % (37.0-47.0); HEMOGLOBIN 8.9 g/dL (11.5-16.5); LYMPHOCYTES ABSOLUTE AUTO 1.09 K/uL (1.50-4.00); LYMPHOCYTES PERCENT AUTO 15.4 % (20.0-40.0); MEAN CORPUSCULAR HEMOGLOBIN 31.2 pg (27.0-32.0); MEAN CORPUSCULAR HGB CONC 31.4 g/dL (31.0-35.0); MEAN CORPUSCULAR VOLUME 99 fL (76-96); MEAN PLATELET VOLUME 9.2 fL (6.0-10.0); MONOCYTES ABSOLUTE AUTO 0.74 K/uL (0.20-0.80); MONOCYTES PERCENT AUTO 10.5 % (3.0-10.0); NEUTROPHILS ABSOLUTE AUTO 4.94 K/uL (2.00-7.50); PLATELET COUNT,PLT 358 K/uL (150-500); RED BLOOD CELL COUNT 2.85 M/uL (3.80-5.80); RED CELL DISTRIBUTION WIDTH 14.1 % (11.0-16.0); WHITE BLOOD CELL COUNT,WBC 7.1 K/uL (4.0-11.0)
[2023-04-11 12:43] LABS: A/G RATIO 0.7 (0.8-2.0); ALANINE AMINOTRANSFERASE,ALT 14 U/L (12-78); ALBUMIN 2.5 g/dL (3.4-5.0); ALKALINE PHOSPHATASE 91 U/L (46-116); ANION GAP 10.6 mmol/L (5.0-15.0); ASPARTATE AMNIOTRANSFERASE,AST 14 U/L (15-37); BILIRUBIN TOTAL 0.3 mg/dL (0.0-1.0); BLOOD UREA NITROGEN,BUN 31 mg/dL (8-26); BUN/CREATININE RATIO 14.4 (6-25); CALCIUM 8.3 mg/dL (8.5-10.1); CARBON DIOXIDE,CO2 26.5 mmol/L (21.0-32.0); CHLORIDE,CL 98 mmol/L (98-107); CREATININE 2.15 mg/dL (0.55-1.02); ESTIMATED GFR 23 mL/min (>60); GLUCOSE RANDOM 108 mg/dL (74-100); POTASSIUM,K 5.1 mmol/L (3.5-5.1); PROTEIN TOTAL,TP 6.2 g/dL (6.4-8.2); SODIUM,NA 130 mmol/L (136-145)
[2023-04-11] MEDS: Acetaminophen 500 MG Tab PO SCH ×2 (15:54→20:39)
[2023-04-11] MEDS: atorvaSTATin 20 MG Tab PO SCH (20:36)
[2023-04-11] MEDS: Cyclobenzaprine 5 MG Tab PO PRN (20:36)
[2023-04-11] MEDS: oxyCODONE 5 MG Tab PO PRN (20:40)
[2023-04-11] MEDS: Sertraline 50 MG Tab PO SCH (20:41)
[2023-04-12] MEDS: Tiotropium Inhaler 18 MCG Inhalation Powder Cap Kit of 5 INH SCH (07:24)
[2023-04-12] MEDS ORDERED: Losartan 50 MG Tab PO SCH (08:00)
[2023-04-12] MEDS: Acetaminophen 500 MG Tab PO SCH ×4 (09:10→22:23)
[2023-04-12] MEDS: Metoprolol Succinate 25 MG Tab.ER PO SCH (09:11)
[2023-04-12] MEDS: Furosemide 20 MG Tab PO SCH (09:11)
[2023-04-12] MEDS: hydrALAZINE 25 MG Tab PO SCH ×4 (09:25→22:24)
[2023-04-12] MEDS: Pantoprazole 40 MG Tab.CR PO SCH ×2 (09:25→22:22)
[2023-04-12] MEDS: NIFEdipine 30 MG Tab.ER PO SCH (09:25)
[2023-04-12] MEDS: Aspirin 81 MG Tab.EC PO SCH ×2 (10:11→22:22)
[2023-04-12] MEDS: Nystatin Crm 30 GM Tube TOP SCH (10:11)
[2023-04-12] MEDS: Polyethylene Glycol 3350 Powder 17 GM Packet PO SCH (10:11)
[2023-04-12] MEDS: Nicotine 14 MG/24 Hr Patch TOP SCH (10:11)
[2023-04-12] MEDS: Calcium Carbonate 500 MG Tab.Chew PO SCH (10:11)
[2023-04-12] MEDS ORDERED: Nystatin Crm 30 GM Tube TOP PRN (16:00)
[2023-04-12] MEDS: Calcium Carbonate 500 MG Tab.Chew PO PRN (18:48)
[2023-04-12] MEDS: Methocarbamol 500 MG Tab PO PRN (18:48)
[2023-04-12] MEDS: Albuterol 8 GM Inhaler INH PRN (22:21)
[2023-04-12] MEDS: atorvaSTATin 20 MG Tab PO SCH (22:22)
[2023-04-12] MEDS: Sertraline 50 MG Tab PO SCH (22:23)
[2023-04-12] MEDS: Cyclobenzaprine 5 MG Tab PO PRN (22:23)
[2023-04-13] MEDS: Polyethylene Glycol 3350 Powder 17 GM Packet PO SCH (10:53)
[2023-04-13] MEDS: NIFEdipine 30 MG Tab.ER PO SCH (10:53)
[2023-04-13] MEDS: Furosemide 20 MG Tab PO SCH (10:54)
[2023-04-13] MEDS: Metoprolol Succinate 25 MG Tab.ER PO SCH (10:54)
[2023-04-13] MEDS: Sodium Bicarbonate 650 MG Tab PO SCH (10:54)
[2023-04-13] MEDS: Tiotropium Inhaler 18 MCG Inhalation Powder Cap Kit of 5 INH SCH (10:57)
[2023-04-13] MEDS: Aspirin 81 MG Tab.EC PO SCH ×2 (10:57→21:45)
[2023-04-13] MEDS: Acetaminophen 500 MG Tab PO SCH ×3 (10:57→21:43)
[2023-04-13] MEDS: hydrALAZINE 25 MG Tab PO SCH ×3 (10:57→21:42)
[2023-04-13] MEDS: atorvaSTATin 20 MG Tab PO SCH (21:42)
[2023-04-13] MEDS: Pantoprazole 40 MG Tab.CR PO SCH (21:42)
[2023-04-13] MEDS: Sertraline 50 MG Tab PO SCH (21:43)
[2023-04-13] MEDS: Cyclobenzaprine 5 MG Tab PO PRN (21:43)
[2023-04-14] MEDS: oxyCODONE 5 MG Tab PO PRN (07:36)
[2023-04-14] MEDS: Sodium Bicarbonate 650 MG Tab PO SCH (10:51)
[2023-04-14] MEDS: Aspirin 81 MG Tab.EC PO SCH ×2 (10:52→22:15)
[2023-04-14] MEDS: Furosemide 20 MG Tab PO SCH (10:52)
[2023-04-14] MEDS: Acetaminophen 500 MG Tab PO SCH ×3 (10:52→22:15)
[2023-04-14] MEDS: Metoprolol Succinate 25 MG Tab.ER PO SCH (10:52)
[2023-04-14] MEDS: NIFEdipine 30 MG Tab.ER PO SCH (10:52)
[2023-04-14] MEDS: Polyethylene Glycol 3350 Powder 17 GM Packet PO SCH (10:53)
[2023-04-14] MEDS: hydrALAZINE 25 MG Tab PO SCH ×3 (10:53→22:14)
[2023-04-14] MEDS: Tiotropium Inhaler 18 MCG Inhalation Powder Cap Kit of 5 INH SCH (10:53)
[2023-04-14] MEDS: Pantoprazole 40 MG Tab.CR PO SCH (22:15)
[2023-04-14] MEDS: atorvaSTATin 20 MG Tab PO SCH (22:15)
[2023-04-14] MEDS: Sertraline 50 MG Tab PO SCH (22:16)
[2023-04-15] MEDS: Metoprolol Succinate 25 MG Tab.ER PO SCH (09:35)
[2023-04-15] MEDS: NIFEdipine 30 MG Tab.ER PO SCH (09:35)
[2023-04-15] MEDS: Sodium Bicarbonate 650 MG Tab PO SCH (09:36)
[2023-04-15] MEDS: Polyethylene Glycol 3350 Powder 17 GM Packet PO SCH (09:36)
[2023-04-15] MEDS: Furosemide 20 MG Tab PO SCH (09:38)
[2023-04-15] MEDS: Tiotropium Inhaler 18 MCG Inhalation Powder Cap Kit of 5 INH SCH (09:44)
[2023-04-15] MEDS: Aspirin 81 MG Tab.EC PO SCH ×2 (09:45→21:38)
[2023-04-15] MEDS: Acetaminophen 500 MG Tab PO SCH ×3 (09:45→21:39)
[2023-04-15] MEDS: hydrALAZINE 25 MG Tab PO SCH ×3 (09:47→21:38)
[2023-04-15] MEDS: atorvaSTATin 20 MG Tab PO SCH (21:38)
[2023-04-15] MEDS: Pantoprazole 40 MG Tab.CR PO SCH (21:38)
[2023-04-15] MEDS: Cyclobenzaprine 5 MG Tab PO PRN (21:39)
[2023-04-15] MEDS: Sertraline 50 MG Tab PO SCH (21:39)
[2023-04-15] MEDS: Calcium Carbonate 500 MG Tab.Chew PO PRN (21:46)
[2023-04-16] MEDS: hydrALAZINE 25 MG Tab PO SCH ×3 (09:49→21:52)
[2023-04-16] MEDS: NIFEdipine 30 MG Tab.ER PO SCH (09:49)
[2023-04-16] MEDS: Sodium Bicarbonate 650 MG Tab PO SCH (09:49)
[2023-04-16] MEDS: Acetaminophen 500 MG Tab PO SCH ×3 (09:50→21:54)
[2023-04-16] MEDS: Metoprolol Succinate 25 MG Tab.ER PO SCH (09:50)
[2023-04-16] MEDS: Furosemide 20 MG Tab PO SCH (09:51)
[2023-04-16] MEDS: Polyethylene Glycol 3350 Powder 17 GM Packet PO SCH (09:52)
[2023-04-16] MEDS: Aspirin 81 MG Tab.EC PO SCH ×2 (09:53→21:57)
[2023-04-16] MEDS: Tiotropium Inhaler 18 MCG Inhalation Powder Cap Kit of 5 INH SCH (10:04)
[2023-04-16] MEDS: Acetaminophen 500 MG Tab ONE ×2 (16:07→19:05)
[2023-04-16] MEDS: Nicotine 14 MG/24 Hr Patch TOP PRN (18:06)
[2023-04-16] MEDS: Cyclobenzaprine 5 MG Tab PO PRN (21:50)
[2023-04-16] MEDS: Sertraline 50 MG Tab PO SCH (21:50)
[2023-04-16] MEDS: atorvaSTATin 20 MG Tab PO SCH (21:51)
[2023-04-16] MEDS: Pantoprazole 40 MG Tab.CR PO SCH (21:51)
[2023-04-17 09:09] LABS: APPEARANCE,URINE CLEAR (CLEAR); BILIRUBIN,URINE NEGATIVE (NEGATIVE); COLOR,URINE YELLOW; GLUCOSE,URINE NEGATIVE (NEGATIVE); KETONES,URINE NEGATIVE (NEGATIVE); LEUKOCYTE ESTERASE,URINE NEGATIVE (NEGATIVE); NITRITE,URINE NEGATIVE (NEGATIVE); OCCULT BLOOD,URINE NEGATIVE (NEGATIVE); PH,URINE 7.5 (5.0-8.0); PROTEIN,URINE 100 mg/dL (NEGATIVE); UROBILINOGEN,URINE 0.2 E.U./dL (0.2-1.0)
[2023-04-17 09:12] LABS: RBC,URINE 0-5 /HPF; SQUAMOUS EPITHELIAL CELLS,UR FEW /HPF; WBC,URINE 0-5 /HPF
[2023-04-17] MEDS: Tiotropium Inhaler 18 MCG Inhalation Powder Cap Kit of 5 INH SCH (10:13)
[2023-04-17] MEDS: Furosemide 20 MG Tab PO SCH (10:13)
[2023-04-17] MEDS: Polyethylene Glycol 3350 Powder 17 GM Packet PO SCH (10:13)
[2023-04-17] MEDS: Metoprolol Succinate 25 MG Tab.ER PO SCH (10:13)
[2023-04-17] MEDS: Sodium Bicarbonate 650 MG Tab PO SCH (10:14)
[2023-04-17] MEDS: NIFEdipine 30 MG Tab.ER PO SCH (10:14)
[2023-04-17] MEDS ORDERED: Aspirin 81 MG Tab.EC ONE (10:16)
[2023-04-17] MEDS ORDERED: hydrALAZINE 25 MG Tab ONE ×2 (10:16→15:35)
[2023-04-17] MEDS: Aspirin 81 MG Tab.EC PO SCH ×2 (10:16→21:41)
[2023-04-17] MEDS: hydrALAZINE 25 MG Tab PO SCH ×3 (10:16→21:41)
[2023-04-17] MEDS: Nicotine 14 MG/24 Hr Patch TOP PRN (10:17)
[2023-04-17] MEDS: Acetaminophen 500 MG Tab PO SCH ×3 (13:34→21:42)
[2023-04-17] MEDS: Sertraline 50 MG Tab PO SCH (21:42)
[2023-04-17] MEDS: Pantoprazole 40 MG Tab.CR PO SCH (21:43)
[2023-04-17] MEDS: Cyclobenzaprine 5 MG Tab PO PRN (21:44)
[2023-04-17] MEDS: atorvaSTATin 20 MG Tab PO SCH (21:47)
[2023-04-18] MEDS ORDERED: hydrALAZINE 25 MG Tab ONE (09:19)
[2023-04-18] MEDS ORDERED: Nicotine 14 MG/24 Hr Patch ONE (09:19)
[2023-04-18] MEDS ORDERED: Aspirin 81 MG Tab.EC ONE (09:19)
[2023-04-18] MEDS: Nicotine 14 MG/24 Hr Patch TOP PRN (09:23)
[2023-04-18] MEDS: hydrALAZINE 25 MG Tab PO SCH ×3 (09:23→21:58)
[2023-04-18] MEDS: Polyethylene Glycol 3350 Powder 17 GM Packet PO SCH (09:23)
[2023-04-18] MEDS: Sodium Bicarbonate 650 MG Tab PO SCH (09:24)
[2023-04-18] MEDS: Furosemide 20 MG Tab PO SCH (09:24)
[2023-04-18] MEDS: Aspirin 81 MG Tab.EC PO SCH ×2 (09:24→21:58)
[2023-04-18] MEDS: NIFEdipine 30 MG Tab.ER PO SCH (09:24)
[2023-04-18] MEDS: Metoprolol Succinate 25 MG Tab.ER PO SCH (09:24)
[2023-04-18] MEDS: Tiotropium Inhaler 18 MCG Inhalation Powder Cap Kit of 5 INH SCH (09:26)
[2023-04-18] MEDS: Acetaminophen 500 MG Tab PO SCH ×3 (09:27→21:59)
[2023-04-18] MEDS: atorvaSTATin 20 MG Tab PO SCH (21:58)
[2023-04-18] MEDS: Sertraline 50 MG Tab PO SCH (21:59)
[2023-04-18] MEDS: Pantoprazole 40 MG Tab.CR PO SCH (21:59)
[2023-04-18] MEDS: Calcium Carbonate 500 MG Tab.Chew PO PRN (22:04)
[2023-04-19] MEDS: Sodium Bicarbonate 650 MG Tab PO SCH (09:40)
[2023-04-19] MEDS: Metoprolol Succinate 25 MG Tab.ER PO SCH (09:40)
[2023-04-19] MEDS: Polyethylene Glycol 3350 Powder 17 GM Packet PO SCH (09:40)
[2023-04-19] MEDS: NIFEdipine 30 MG Tab.ER PO SCH (09:40)
[2023-04-19] MEDS: Tiotropium Inhaler 18 MCG Inhalation Powder Cap Kit of 5 INH SCH (09:40)
[2023-04-19] MEDS: Furosemide 20 MG Tab PO SCH (09:41)
[2023-04-19] MEDS: Aspirin 81 MG Tab.EC PO SCH ×2 (09:42→21:54)
[2023-04-19] MEDS: hydrALAZINE 25 MG Tab PO SCH ×3 (09:42→21:52)
[2023-04-19] MEDS: Acetaminophen 500 MG Tab PO SCH ×3 (09:43→21:53)
[2023-04-19] MEDS: Nicotine 14 MG/24 Hr Patch TOP PRN (11:39)
[2023-04-19] MEDS: Sertraline 50 MG Tab PO SCH (21:51)
[2023-04-19] MEDS: atorvaSTATin 20 MG Tab PO SCH (21:52)
[2023-04-19] MEDS: Pantoprazole 40 MG Tab.CR PO SCH (21:54)
[2023-04-19] MEDS: Cyclobenzaprine 5 MG Tab PO PRN (21:54)
[2023-04-20] MEDS: NIFEdipine 30 MG Tab.ER PO SCH (11:10)
[2023-04-20] MEDS: Aspirin 81 MG Tab.EC PO SCH (11:17)
[2023-04-20] MEDS: Furosemide 20 MG Tab PO SCH (11:18)
[2023-04-20] MEDS: Metoprolol Succinate 25 MG Tab.ER PO SCH (11:18)
[2023-04-20] MEDS: Sodium Bicarbonate 650 MG Tab PO SCH (11:18)
[2023-04-20] MEDS: Polyethylene Glycol 3350 Powder 17 GM Packet PO SCH (11:18)
[2023-04-20] MEDS: hydrALAZINE 25 MG Tab PO SCH (11:19)
[2023-04-20] MEDS: Tiotropium Inhaler 18 MCG Inhalation Powder Cap Kit of 5 INH SCH (11:19)
[2023-04-20 11:20] VITALS: PULSE 70
[2023-04-20] MEDS: Acetaminophen 500 MG Tab PO SCH (11:21)
[2023-04-20 11:51] VITALS: BP 200/80
== END 2023-04-20 11:37 | disposition home or self-care (01) | DRG 948 ==
LOC: UNDOADMIN 18:30 → LB.MS 18:30
PROVIDERS: ADMIT Physician Assistant; ATTEND Physician Assistant
DX: R53.81 Other malaise (principal); H91.90 Unspecified hearing loss, unspecified ear; E78.00 Pure hypercholesterolemia, unspecified; I10 Essential (primary) hypertension; H54.7 Unspecified visual loss; K59.09 Other constipation; K21.9 Gastro-esophageal reflux disease without esophagitis; Z96.659 Presence of unspecified artificial knee joint; Z98.49 Cataract extraction status, unspecified eye; Z98.890 Other specified postprocedural states; Z79.82 Long term (current) use of aspirin; Z79.899 Other long term (current) drug therapy
CPT/HCPCS: 36415; 80048; 80053; 81001; 83735; 85025; 86580; 97110-GO; 97110-GP; 97116-GP; 97140-GP; 97161-GP; 97165-GO; 97530-GO; 97530-GP; 97535-GO; 99304; 99307; 99315; A9270-GY